=== PATIENT | male | born 1995 | race Caucasian/White ===

== ENCOUNTER → 2021-04-20 11:21 | Outpatient (CLI) | payer OTHER, SELFPAY ==
--- NOTE | 2021-04-20 | DI.MRI.S_ITS ---
PROCEDURE: MR HAND LT WO/W CON INDICATIONS: Localized swelling, mass and lump, left upper limb TECHNIQUE: Noncontrast coronal T1 spin echo and T2 fast spin echo with fat saturation, axial proton density fast spin echo and T2 fast spin echo with fat saturation, axial T1 spin echo with fat saturation, sagittal T1 spin echo and STIR through the hand and fingers. Post-contrast axial, coronal, and sagittal T1 spin echo through the hand and fingers. COMPARISON: [facility] Outside Film, CR, XR HAND 1 OR 2 VIEWS LEFT, 03/19/2021, 13:32. FINDINGS: Image quality: Excellent. Bones: Nonspecific focus of metallic artifact is seen at the distal ulnar aspect of the 1st metacarpal head that is of uncertain etiology, possibly representing prior postsurgical changes or less likely a foreign body. No corresponding abnormality is seen on the prior radiograph. There is mild osseous edema at the adjacent portion of the 1st metacarpal head. Soft tissues: A circumscribed mass is seen in the subcutaneous tissues at the dorsal aspect of the thumb, superficial to the extensor tendon. The mass measures approximately 2.3 x 1.7 x 4.1 cm. It is slightly heterogeneously hyperintense on T2-weighted images and approximately isointense to muscle on T1-weighted images. The majority of the mass does not enhance, but there may be subtle enhancement versus inhomogeneous fat suppression at the distal portion of the mass. The mass extends from the level of the 1st metacarpal head to the level of the interphalangeal joint. No involvement of the adjacent extensor tendon or 1st proximal phalanx is seen. No involvement of the 1st metacarpophalangeal joint. Minimal surrounding soft tissue edema is present proximally. No additional soft tissue mass or abnormal enhancement is seen in the hand. Visualized muscles demonstrate normal bulk and internal signal. IMPRESSION: 1. Circumscribed 4.1 cm mass lesion at the dorsal aspect of the thumb located in the subcutaneous tissues without involvement of the underlying extensor tendon or adjacent osseous structures. The mass predominantly fluid signal intensity, but there is some heterogeneity and possible subtle enhancement of the distal portion that suggests lesion could be a benign or malignant solid neoplasm. Consider surgical excision. 2. Small focus of metallic susceptibility artifact at the dorsal ulnar aspect of the 1st metacarpal head with mild surrounding osseous edema, which is of uncertain etiology. Recommend correlation for prior instrumentation or trauma. Dictated by: Willis Thornton M.D. on 04/20/2021 at 16:11 Approved by: Willis Thornton M.D. on 04/20/2021 at 16:27
== END ==
PROVIDERS: PCP Family Medicine; Referring Provider Orthopaedic Surgery; Visit Provider Orthopaedic Surgery
DX: R22.32 Localized swelling, mass and lump, left upper limb (principal)
CPT/HCPCS: 73220